=== PATIENT | male | born 1960 | race Caucasian/White ===

== ENCOUNTER 2023-04-20 15:46 | Emergency (ER) | payer BC, OTHER ==
[2023-04-20] MEDS ORDERED: Sodium Chloride 0.9% 10 ML Syringe FLUSH PRN (15:54)
[2023-04-20 16:08] LABS: BASOPHILS ABSOLUTE AUTO 0.03 K/uL (0.00-0.20); BASOPHILS PERCENT AUTO 0.4 % (0.0-2.0); EOSINOPHILS ABSOLUTE AUTO 0.18 K/uL (0.00-0.50); EOSINOPHILS PERCENT AUTO 2.2 % (0.0-5.0); HEMATOCRIT 42.3 % (39.0-49.0); HEMOGLOBIN 14.2 g/dL (13.1-16.8); LYMPHOCYTES ABSOLUTE AUTO 2.55 K/uL (0.50-3.50); LYMPHOCYTES PERCENT AUTO 31.2 % (10.0-50.0); MEAN CORPUSCULAR HEMOGLOBIN 28.8 pg (28.2-33.3); MEAN CORPUSCULAR HGB CONC 33.6 g/dL (31.7-36.0); MEAN CORPUSCULAR VOLUME 85.8 fL (84.0-98.0); MONOCYTES ABSOLUTE AUTO 0.71 K/uL (0.00-1.00); MONOCYTES PERCENT AUTO 8.7 % (2.0-14.0); NEUTROPHILS ABSOLUTE AUTO 4.71 K/uL (1.40-7.00); NEUTROPHILS PERCENT AUTO 57.5 % (45.0-80.0); PLATELET COUNT,PLT 212 K/uL (150-350); RED BLOOD CELL COUNT 4.93 M/uL (4.33-5.41); RED CELL DISTRIBUTION WIDTH 13.4 % (11.2-14.1); WHITE BLOOD CELL COUNT,WBC 8.2 K/uL (4.0-10.2)
[2023-04-20 16:25] LABS: INR 1.1 (0.9-1.1); PROTHROMBIN TIME 10.6 SEC (9.0-11.1)
[2023-04-20 16:36] LABS: BILIRUBIN TOTAL 0.5 mg/dL (0.2-1.0); CALCIUM 9.1 mg/dL (8.5-10.1); CARBON DIOXIDE,CO2 25.9 mmol/L (21.0-32.0); CREATININE 1.65 mg/dL (0.51-1.17); EST CRCL DRUG DOSING (CG) 47.61 mL/min; POTASSIUM,K 3.8 mmol/L (3.5-5.1); PROTEIN TOTAL,TP 6.9 g/dL (6.4-8.2)
[2023-04-20 16:37] LABS: ANION GAP 10.9 meq/L (7-15)
== END 2023-04-20 17:05 | disposition home or self-care (01) ==
LOC: LL.ED 15:46
DX: R07.9 Chest pain, unspecified (principal); Z79.899 Other long term (current) drug therapy
CPT/HCPCS: 36415; 71046; 80053; 83880; 84484; 85025; 85610; 93005; 93010; 99284; 99285